=== PATIENT | female | born 1965 | race Caucasian/White ===

== ENCOUNTER 2023-12-17 08:31 | Outpatient (CLI) | payer OTHER | END 2023-12-17 08:32 | disposition home or self-care (01) | LOC: CSHULT 08:31 | PROVIDERS: ATTEND Internal Medicine Gastroenterology | DX: D12.6 Benign neoplasm of colon, unspecified (principal); Z86.0100 Personal history of colon polyps, unspecified; E04.1 Nontoxic single thyroid nodule; Z80.9 Family history of malignant neoplasm, unspecified; K76.0 Fatty (change of) liver, not elsewhere classified; E78.00 Pure hypercholesterolemia, unspecified; N28.89 Other specified disorders of kidney and ureter | CPT/HCPCS: 76705 ==

== ENCOUNTER 2024-10-29 15:51 | Outpatient (CLI) | payer BC | END 2024-10-29 15:52 | disposition home or self-care (01) | LOC: CSHULT 15:51 | PROVIDERS: ATTEND Urology | DX: N20.0 Calculus of kidney (principal); N28.1 Cyst of kidney, acquired; N28.89 Other specified disorders of kidney and ureter | CPT/HCPCS: 76770 ==

== ENCOUNTER 2024-11-04 10:05 | Outpatient (CLI) | payer BC | END 2024-11-04 10:06 | disposition home or self-care (01) | LOC: CSHRAD 10:05 | PROVIDERS: ATTEND Urology | DX: N20.0 Calculus of kidney (principal); N28.1 Cyst of kidney, acquired | CPT/HCPCS: 74018 ==

== ENCOUNTER 2024-11-26 08:14 | Outpatient (CLI) | payer BC ==
[2024-11-26 09:04] LABS: Estimated GFR - POC 64.0
== END 2024-11-26 08:15 | disposition home or self-care (01) ==
LOC: CSHCT 08:14
PROVIDERS: ATTEND Urology
DX: N20.0 Calculus of kidney (principal); N28.1 Cyst of kidney, acquired; N28.89 Other specified disorders of kidney and ureter
CPT/HCPCS: 36415; 74178; 82565